=== PATIENT | male | born 1995 | race Caucasian/White ===

== ENCOUNTER 2023-08-02 21:50 | Emergency (ER) | payer OTHER ==
[2023-08-02] MEDS ORDERED: Sodium Chloride 0.9% 10 ML Syringe FLUSH PRN (22:06)
[2023-08-02] MEDS ORDERED: Ondansetron 4 MG/2 ML SDV IVPUSH ONE (22:07)
[2023-08-02] MEDS ORDERED: hydrALAZINE 20 MG/ML SDV IVPUSH ONE (22:36)
[2023-08-02 22:39] LABS: BASOPHILS ABSOLUTE AUTO 0.04 10^3/uL (0.00-0.10); BASOPHILS PERCENT AUTO 0.6 % (0.0-1.0); EOSINOPHILS ABSOLUTE AUTO 0.42 10^3/uL (0.10-0.30); EOSINOPHILS PERCENT AUTO 6.3 % (1.0-3.0); HEMATOCRIT 28.4 % (40.0-52.0); HEMOGLOBIN 9.3 g/dL (13.0-17.0); IMMATURE GRAN ABSOLUTE AUTO 0.01 10^3/uL (0.00-0.50); IMMATURE GRAN PERCENT AUTO 0.2 % (0.0-5.0); LYMPHOCYTES ABSOLUTE AUTO 2.49 10^3/uL (1.00-4.00); LYMPHOCYTES PERCENT AUTO 37.5 % (20.0-40.0); MEAN CORPUSCULAR HEMOGLOBIN 29.2 pg (27.0-31.0); MEAN CORPUSCULAR HGB CONC 32.7 g/dL (32.0-36.0); MEAN PLATELET VOLUME 8.7 fL (7.4-10.4); MONOCYTES ABSOLUTE AUTO 0.45 10^3/uL (0.10-0.80); MONOCYTES PERCENT AUTO 6.8 % (2.0-8.0); NEUTROPHILS ABSOLUTE AUTO 3.23 10^3/uL (2.50-7.00); NEUTROPHILS PERCENT AUTO 48.6 % (50.0-70.0); PLATELET COUNT,PLT 183 10^3/uL (150-400); RED BLOOD CELL COUNT 3.19 10^6/uL (4.50-6.00); WHITE BLOOD CELL COUNT,WBC 6.64 10^3/uL (5.00-10.00)
[2023-08-02] MEDS ORDERED: LORazepam 2 MG/ML SDV IVPUSH ONE (22:47)
[2023-08-02 22:58] LABS: ALBUMIN 3.48 g/dL (3.40-5.00); ANION GAP 15.5 mmol/L (5-15); BILIRUBIN TOTAL 0.3 mg/dL (0.2-1.0); C-REACTIVE PROTEIN 0.8 mg/dL (0.0-0.9); CARBON DIOXIDE,CO2 28.3 mmol/L (21.0-32.0); EST CRCL DRUG DOSING (CG) 12.62 mL/min; POTASSIUM,K 5.8 mmol/L (3.5-5.1); PROTEIN TOTAL,TP 6.9 g/dL (6.4-8.2)
[2023-08-02 23:01] LABS: LACTIC ACID 0.7 mmol/L (0.4-2.0)
[2023-08-02 23:06] LABS: CREATININE 10.6 mg/dL (0.51-1.17)
[2023-08-02] MEDS ORDERED: hydrALAZINE 10 MG Tab PO SCH (23:30)
[2023-08-02] MEDS ORDERED: Promethazine 25 MG in Sodium Chloride 0.9% 100 ML IV PRN (23:31)
[2023-08-02] MEDS: hydrALAZINE 20 MG/ML SDV IVPUSH ONE ×2 (23:33→23:53)
[2023-08-02] MEDS ORDERED: Promethazine 25 MG/ML SDV ONE (23:34)
[2023-08-02] MEDS ORDERED: Sodium Chloride 0.9% 50 ML ONE (23:35)
[2023-08-03 00:40] VITALS: BP 117/85; PULSE 73
== END 2023-08-03 00:14 | disposition home or self-care (01) ==
LOC: KA.ED 21:50
DX: R11.0 Nausea (principal); H53.143 Visual discomfort, bilateral; I15.1 Hypertension secondary to other renal disorders; N18.9 Chronic kidney disease, unspecified; N18.6 End stage renal disease; Z99.2 Dependence on renal dialysis; Z88.8 Allergy status to other drugs, medicaments and biological substances; Z88.1 Allergy status to other antibiotic agents; Z79.899 Other long term (current) drug therapy; Z79.2 Long term (current) use of antibiotics; Z20.822 Contact with and (suspected) exposure to COVID-19
CPT/HCPCS: 36415; 80053; 82140; 83605; 85025; 86140; 96374; 96375; 96376; 99284; 99284-25; A9270-GY; J0360; J2060; J2405; J2550; J3490; U0002

== ENCOUNTER 2024-02-11 20:25 | Emergency (ER) | payer OTHER, MEDICAID ==
[2024-02-11 22:26] LABS: BASOPHILS ABSOLUTE AUTO 0.06 10^3/uL (0.00-0.10); BASOPHILS PERCENT AUTO 0.7 % (0.0-1.0); EOSINOPHILS ABSOLUTE AUTO 0.26 10^3/uL (0.10-0.30); EOSINOPHILS PERCENT AUTO 3.2 % (1.0-3.0); HEMATOCRIT 37.6 % (40.0-52.0); IMMATURE GRAN ABSOLUTE AUTO 0.02 10^3/uL (0.00-0.50); IMMATURE GRAN PERCENT AUTO 0.2 % (0.0-5.0); LYMPHOCYTES ABSOLUTE AUTO 2.18 10^3/uL (1.00-4.00); LYMPHOCYTES PERCENT AUTO 26.6 % (20.0-40.0); MEAN CORPUSCULAR HEMOGLOBIN 29.4 pg (27.0-31.0); MEAN CORPUSCULAR HGB CONC 31.9 g/dL (32.0-36.0); MEAN CORPUSCULAR VOLUME 92.2 fL (82.0-92.0); MONOCYTES ABSOLUTE AUTO 0.52 10^3/uL (0.10-0.80); MONOCYTES PERCENT AUTO 6.3 % (2.0-8.0); NEUTROPHILS ABSOLUTE AUTO 5.17 10^3/uL (2.50-7.00); PLATELET COUNT,PLT 209 10^3/uL (150-400); RED BLOOD CELL COUNT 4.08 10^6/uL (4.50-6.00); WHITE BLOOD CELL COUNT,WBC 8.21 10^3/uL (5.00-10.00)
[2024-02-11 22:41] LABS: ALBUMIN 3.42 g/dL (3.40-5.00); ANION GAP 14.1 mmol/L (5-15); BILIRUBIN TOTAL 0.5 mg/dL (0.2-1.0); CALCIUM 8.2 mg/dL (8.7-10.3); CARBON DIOXIDE,CO2 33.5 mmol/L (21.0-32.0); POTASSIUM,K 4.6 mmol/L (3.5-5.1); PROTEIN TOTAL,TP 7.2 g/dL (6.4-8.2)
[2024-02-11 22:46] LABS: CREATININE 8.79 mg/dL (0.51-1.17)
[2024-02-11 23:53] VITALS: BP 139/100; PULSE 83
== END 2024-02-11 23:00 | disposition home or self-care (01) ==
LOC: KA.ED 20:25
DX: I10 Essential (primary) hypertension (principal); Z99.2 Dependence on renal dialysis; Z94.0 Kidney transplant status; Z88.8 Allergy status to other drugs, medicaments and biological substances; Z88.1 Allergy status to other antibiotic agents; Z79.899 Other long term (current) drug therapy
CPT/HCPCS: 36415; 80053; 85025; 99284

== ENCOUNTER 2025-06-10 12:25 | Emergency (ER) | payer OTHER ==
[2025-06-10 13:02] LABS: B-TYPE NATRIURETIC PEPTIDE,BNP 334.0 pg/mL (0-100)
[2025-06-10 13:10] LABS: CARBON DIOXIDE,CO2 22.8 mmol/L (21.0-32.0); CHLORIDE,CL 96.0 mmol/L (98-107); EST CRCL DRUG DOSING (CG) 9.5 mL/min; GLUCOSE RANDOM 87.0 mg/dL (70-140); POTASSIUM,K 4.9 mmol/L (3.5-5.1); SODIUM,NA 140.0 mmol/L (136-145)
[2025-06-10 13:11] LABS: BLOOD UREA NITROGEN,BUN 70.0 mg/dL (7-18)
[2025-06-10 13:12] LABS: CREATININE 13.43 mg/dL (0.51-1.17); ESTIMATED GFR 5.0 mL/min (>=60)
[2025-06-10 13:39] VITALS: BP 148/70; PULSE 73
== END 2025-06-10 13:37 | disposition home or self-care (01) ==
LOC: KA.ED 12:25
DX: N18.6 End stage renal disease (principal); Z99.2 Dependence on renal dialysis; I10 Essential (primary) hypertension; Z88.1 Allergy status to other antibiotic agents; Z79.899 Other long term (current) drug therapy
CPT/HCPCS: 36415; 71045; 80048; 83880; 93010; 99283; 99284